=== PATIENT | female | born 1940 | race Caucasian/White ===

== ENCOUNTER → 2016-08-21 | Outpatient (CLI) | payer MEDICARE ==
[~2016-08-21] MED LIST: BUMEX 1MG TABLET1 MG PO; CARDIZEM120 MG PO; CATAPRES 0.1MG0.1 MG PO; CATAPRES-TTS 21 EACH TD; HYDRALAZINE HCL50 MG PO; LACTINEX PACKET1 PKT PO; LEVAQUIN500 MG PO; LEVAQUIN750 MG PO; LOSARTAN POTAS100 MG PO; METOPROLOL TART50 MG PO; PERCOCET 5/325 T1 EA PO; SYNTHROID 88 M88 MCG PO; VIBRAMYCIN 100100 MG PO; ZOFRAN ODT4 MG PO; ZOFRAN4 MG PO
== END ==
LOC: KOH-I 14:25
DX: M25.522 Pain in left elbow (principal)
CPT/HCPCS: 73060; 73080; 73090

== ENCOUNTER 2020-09-10 19:50 | Inpatient (IN) | payer MEDICARE ==
[~2020-09-10] VITALS: Ht 149.9 cm; Wt 55.3 kg
[~2020-09-10 19:50] MED LIST changes: +ALENDRONATE SOD70 MG PO; +ARTHRITIS PAIN650 M2 PO; -CARDIZEM120 MG PO; +FOLIC ACID 1 MG1 MG PO; +LOPRESSOR50 MG PO; +METHOTREXATE2.5 MG PO; -METOPROLOL TART50 MG PO; +PREDNISONE5 MG PO; +PRILOSEC OTC20 MG PO; +ROCEPHIN 1 GM AD1 GM IV; +ROXICODONE5 MG PO; -SYNTHROID 88 M88 MCG PO; +SYNTHROID75 MCG PO; +TRAMADOL HCL50 MG PO
[2020-09-11 03:28] LABS: HEMOGLOBIN 13.6 gm/dl (12.3-15.3); RED BLOOD COUNT 3.73 M/UL (4.00-5.10); WHITE BLOOD COUNT 13.4 K/UL (4.5-11.0)
[2020-09-11] MEDS ORDERED: ZYVOX600 MG PO (09:41)
[2020-09-11] MEDS ORDERED: ALDACTONE 25MG25 MG PO (09:43)
[2020-09-11] MEDS ORDERED: METHOTREXATE T2.5 MG PO (09:43)
[2020-09-11] MEDS ORDERED: POTASSIUM99 M1 PO (09:45)
[2020-09-11] MEDS ORDERED: VITAMIN B-121000 MC3 PO (09:46)
[2020-09-11] MEDS ORDERED: CENTRUM SILVER1 EAC1 PO (09:46)
[2020-09-11] MEDS ORDERED: CALCIUM CITRAT200 MG PO (09:47)
[2020-09-13 05:25] LABS: HEMOGLOBIN 11.9 gm/dl (12.3-15.3); RED BLOOD COUNT 3.39 M/UL (4.00-5.10)
[2020-09-13 05:26] LABS: WHITE BLOOD COUNT 9.5 K/UL (4.5-11.0)
[2020-09-14 13:50] LABS: HEMOGLOBIN 10.2 gm/dl (12.3-15.3); RED BLOOD COUNT 2.85 M/UL (4.00-5.10); WHITE BLOOD COUNT 8.1 K/UL (4.5-11.0)
[2020-09-15 05:20] LABS: HEMOGLOBIN 11.1 gm/dl (12.3-15.3); RED BLOOD COUNT 3.04 M/UL (4.00-5.10); WHITE BLOOD COUNT 6.5 K/UL (4.5-11.0)
[2020-09-15 05:53] LABS: BUN/CREATININE RATIO 3 (0-10)
[2020-09-16 03:54] LABS: HEMOGLOBIN 10.2 gm/dl (12.3-15.3); RED BLOOD COUNT 2.84 M/UL (4.00-5.10); WHITE BLOOD COUNT 6.9 K/UL (4.5-11.0)
[2020-09-16 04:10] LABS: BUN/CREATININE RATIO 4 (0-10)
[2020-09-17 04:01] LABS: HEMOGLOBIN 10.1 gm/dl (12.3-15.3); RED BLOOD COUNT 2.84 M/UL (4.00-5.10); WHITE BLOOD COUNT 6.6 K/UL (4.5-11.0)
[2020-09-17 04:37] LABS: BUN/CREATININE RATIO 4 (0-10)
[2020-09-17] MEDS ORDERED: AMOX TR-K CLV1 EAC4 PO (10:37)
--- NOTE | 2020-09-17 16:26 | NUR ---
CALLED [facility]. REPORT GIVEN TO [employer] CONSERVATION TEACHER RN FOR INTAKE
[2020-09-18] MEDS ORDERED: ZYRTEC10 M3 PO (22:33)
[2020-09-18] MEDS ORDERED: ASPIRIN CHEWABL81 MG PO (22:34)
[2020-09-18] MEDS ORDERED: BUMETANIDE1 MG PO (22:34)
[2020-09-18] MEDS ORDERED: CALCIUM CITRAT200 MG PO (22:35)
[2020-10-23] MEDS ORDERED: DULCOLAX5 MG PO (11:01)
[2020-10-23] MEDS ORDERED: POLYETHYLENE GL17 GM PO (11:01)
[2020-10-23] MEDS ORDERED: CHRONULAC20 GM/30 M PO (11:01)
[2020-10-23] MEDS ORDERED: ONDANSETRON HCL4 MG PO (11:01)
[2020-10-23] MEDS ORDERED: DOCUSATE SODIU100 MG PO (11:01)
== END 2020-09-17 18:25 | disposition home health service (06) | DRG 580 ==
LOC: ER1 19:50 → CDU 09-11 04:07 → MED SURG 4 09-11 04:07
PROVIDERS: Internal Medicine; Physician Assistant; ADMIT Internal Medicine
PROC: 0JBJ0ZZ Excision of Right Hand Subcutaneous Tissue and Fascia, Open Approach (ICD-10-PCS; principal; 2020-09-12)
DX: L02.512 Cutaneous abscess of left hand (principal); D84.821 Immunodeficiency due to drugs; E22.2 Syndrome of inappropriate secretion of antidiuretic hormone; L98.498 Non-pressure chronic ulcer of skin of other sites with other specified severity; I13.0 Hypertensive heart and chronic kidney disease with heart failure and stage 1 through stage 4 chronic kidney disease, or unspecified chronic kidney disease; M65.9 Synovitis and tenosynovitis, unspecified; L03.012 Cellulitis of left finger; Z20.822 Contact with and (suspected) exposure to COVID-19; N18.9 Chronic kidney disease, unspecified; E03.9 Hypothyroidism, unspecified; M06.9 Rheumatoid arthritis, unspecified; I27.20 Pulmonary hypertension, unspecified; D64.9 Anemia, unspecified; I50.9 Heart failure, unspecified; E86.0 Dehydration; G47.33 Obstructive sleep apnea (adult) (pediatric); J02.9 Acute pharyngitis, unspecified; T45.1X5A Adverse effect of antineoplastic and immunosuppressive drugs, initial encounter; Z88.1 Allergy status to other antibiotic agents; Z90.710 Acquired absence of both cervix and uterus; Z98.42 Cataract extraction status, left eye; Z98.41 Cataract extraction status, right eye; Z88.6 Allergy status to analgesic agent; Z88.2 Allergy status to sulfonamides; Z88.8 Allergy status to other drugs, medicaments and biological substances; Z82.61 Family history of arthritis
CPT/HCPCS: 36415; 73130; 80048; 80053; 80202; 81001; 83605; 83930; 84295; 85025; 85027; 85652; 86140; 87040; 87070; 87081; 87880; 96374; 99284; G0378; J1100; J2270; J2405; J2543; J2704; J3010; J3370; J7030; J7070; J7120; U0002

== ENCOUNTER 2020-09-18 12:20 | Inpatient (IN) | payer MEDICARE ==
[~2020-09-18] VITALS: Ht 149.9 cm; Wt 56.7 kg
[~2020-09-18 12:20] MED LIST changes: +ALDACTONE 25MG25 MG PO; +AMOX TR-K CLV1 EAC4 PO; +CALCIUM CITRAT200 MG PO; +CENTRUM SILVER1 EAC1 PO; +METHOTREXATE T2.5 MG PO; +POTASSIUM99 M1 PO; +VITAMIN B-121000 MC3 PO; +ZYVOX600 MG PO
[2020-09-18 16:32] LABS: HEMOGLOBIN 12.5 gm/dl (12.3-15.3); RED BLOOD COUNT 3.44 M/UL (4.00-5.10); WHITE BLOOD COUNT 12.9 K/UL (4.5-11.0)
[2020-09-18 16:33] LABS: BUN/CREATININE RATIO 5 (0-10)
[2020-09-18] MEDS ORDERED: ZYRTEC10 M3 PO (22:33)
[2020-09-18] MEDS ORDERED: ASPIRIN CHEWABL81 MG PO (22:34)
[2020-09-18] MEDS ORDERED: BUMETANIDE1 MG PO (22:34)
[2020-09-18] MEDS ORDERED: CALCIUM CITRAT200 MG PO (22:35)
[2020-09-19 03:22] LABS: WHITE BLOOD COUNT 9.8 K/UL (4.5-11.0)
[2020-09-19 03:23] LABS: HEMOGLOBIN 10.2 gm/dl (12.3-15.3); RED BLOOD COUNT 2.86 M/UL (4.00-5.10)
[2020-09-19 03:50] LABS: BUN/CREATININE RATIO 5 (0-10)
[2020-09-19] MEDS ORDERED: CARDIZEM PO (15:26)
--- NOTE | 2020-09-20 03:49 | NUR ---
09/19/201929 PATIENT'S DAUGHTER REQUESTED THAT I COME IN THE ROOM SO THAT SHE COULD SPEAK WITH ME. SHE STATED THAT WHILE CLEANING HER MOM UP EARLIER IN THE DAY BEFORE MY SHIFT STARTED, SHE NOTICED A SMALL PLACE ON HER BOTTOM. PATIENT STATED THAT SHE DID NOT KNOW THE ULCER WAS THERE AND NEITHER DID THE DAUGHTER UNTIL THEN. UPON ADMISSION, THE PATIENT STATED SHE HAD NO SKIN ISSUES OTHER THAN HER LEFT INDEX FINGER AT THE MOMENT AND REFUSED A FULL SKIN ASSESSMENT. PICTURES OF THE ULCER WERE TAKEN AND ARE ON THE CHART.
[2020-09-20 04:43] LABS: BUN/CREATININE RATIO 4 (0-10)
--- NOTE | 2020-09-20 18:00 | NUR ---
1423- BACK FROM OR AT THIS TIME. VITAL SIGNS STABLE. NO DISTRESS NOTED. NO COMPLAINTS. WILL MONITOR.
[2020-09-21 05:26] LABS: BUN/CREATININE RATIO 5 (0-10)
--- NOTE | 2020-09-21 14:33 | NUR ---
PATIENT TOLERATED DRESSING CHANGE BUT REFUSED TO ALLOW ME TO DO A TRUE WET-TO-DRY DRESSING ORDERED. SHE INSISTED ON KEEPING PETROLEUM GAUZE ON THE SITE AND THEN THE DRY GAUZE OVER IT. I WAS ALSO UNABLE TO TRULY COMPRESSION WRAP THE SITE BECAUSE THE PATIENT INSISTED I KEEP IT LOOSE BECAUSE IT WAS PAINFUL. PATIENT WAS PRE-MEDICATED WITH MORPHINE PRIOR TO THE PROCEDURE BUT STILL HAD A LOW TOLERANCE FOR ANY PRESSURE TO THE AFFECTED FINGER.
--- NOTE | 2020-09-22 17:40 | NUR ---
PATEINT REFUSED WET TO DRY DRESSING. DRESSING REMOVED WAS XEROFOAM, GAUZE AND FRIDA WRAP.
[2020-09-23] MEDS ORDERED: ZYVOX600 MG PO (12:14)
[2020-09-24] MEDS ORDERED: LEVOFLOXACIN750 MG PO (09:44)
[2020-09-24] MEDS ORDERED: CEFEPIME-D1 GM/50 ML IV (14:35)
--- NOTE | 2020-09-25 18:18 | NUR ---
patient request to remove her dressing on her left finger, patient and daughter stated that concern of the way her finger looks like and the patient is having pain at this time was the same when she left the hospital and came right back because of the pain and the way wound looks like. daughter request to notify md of the concern. contacted dr. james and he spoken to the patient and daughter and gave them advise of pain management, infectious desease, and daughter stated that she would like to see surgeon. contacted dr. casiano and will see patient tomorrow and I received order. patient and daughter informed of what dr. casiano said and satisfied when i informed them of npo after midnight and not leaving tonight.
--- NOTE | 2020-09-26 10:27 | NUR ---
09/26/20 1025 REPORT CALLED TO [facility]
[2020-09-26] MEDS ORDERED: HYDROCODON-ACE1 EAC4 PO ×2 (10:36→10:53)
[2020-09-26] MEDS ORDERED: PERCOCET 5/325 T1 EA PO (13:18)
[2020-10-23] MEDS ORDERED: DOCUSATE SODIU100 MG PO (11:01)
[2020-10-23] MEDS ORDERED: DULCOLAX5 MG PO (11:01)
[2020-10-23] MEDS ORDERED: CHRONULAC20 GM/30 M PO (11:01)
[2020-10-23] MEDS ORDERED: ONDANSETRON HCL4 MG PO (11:01)
[2020-10-23] MEDS ORDERED: POLYETHYLENE GL17 GM PO (11:01)
== END 2020-09-26 14:25 | disposition home or self-care (01) | DRG 857 ==
LOC: ER1 12:20 → M/S 17:13 → CDU 17:13 → M/S 22:11
PROVIDERS: Orthopaedic Surgery; Physician Assistant; Physician Assistant Medical; ADMIT Internal Medicine
PROC: 0JBK0ZZ Excision of Left Hand Subcutaneous Tissue and Fascia, Open Approach (ICD-10-PCS; principal; 2020-09-20 13:00)
DX: T81.49XA Infection following a procedure, other surgical site, initial encounter (principal); L02.512 Cutaneous abscess of left hand; I96 Gangrene, not elsewhere classified; L03.012 Cellulitis of left finger; R53.1 Weakness; I77.6 Arteritis, unspecified; Z20.822 Contact with and (suspected) exposure to COVID-19; I10 Essential (primary) hypertension; B96.5 Pseudomonas (aeruginosa) (mallei) (pseudomallei) as the cause of diseases classified elsewhere; E03.9 Hypothyroidism, unspecified; M06.9 Rheumatoid arthritis, unspecified; I27.20 Pulmonary hypertension, unspecified; I07.1 Rheumatic tricuspid insufficiency; G47.33 Obstructive sleep apnea (adult) (pediatric); Z88.1 Allergy status to other antibiotic agents; Z88.2 Allergy status to sulfonamides; Z88.8 Allergy status to other drugs, medicaments and biological substances; Z90.710 Acquired absence of both cervix and uterus; Z82.61 Family history of arthritis; Z79.899 Other long term (current) drug therapy; Z79.82 Long term (current) use of aspirin
CPT/HCPCS: 36415; 73140; 80048; 80053; 80202; 83605; 83735; 85025; 85027; 85652; 86140; 87040; 87070; 87077; 87186; 87205; 96374; 96375; 97116-GP-CQ; 97161; 97530-GP-CQ; 99284; A6212; C1751; J2250; J2270; J2405; J2543; J2550; J2704; J2795; J3010; J3370; J7050; J7070; J7120; U0002

== ENCOUNTER 2020-10-15 11:11 | Inpatient (IN) | payer MEDICARE ==
[~2020-10-15] VITALS: Ht 162.6 cm; Wt 61.2 kg
[~2020-10-15 11:11] MED LIST changes: +ASPIRIN CHEWABL81 MG PO; +BUMETANIDE1 MG PO; +CARDIZEM PO; +CEFEPIME-D1 GM/50 ML IV; +HYDROCODON-ACE1 EAC4 PO; +LEVOFLOXACIN750 MG PO; +ZYRTEC10 M3 PO
[2020-10-15] MEDS ORDERED: ZYVOX600 MG PO (12:22)
[2020-10-16 10:45] LABS: HEMOGLOBIN 10.7 gm/dl (12.3-15.3); RED BLOOD COUNT 3.08 M/UL (4.00-5.10); WHITE BLOOD COUNT 6.6 K/UL (4.5-11.0)
--- NOTE | 2020-10-16 14:47 | NUR ---
PATIENT WOUND CARE PERFORMED PER MD ORDERS. TOLERATED WELL.
[2020-10-18 09:50] LABS: HEMOGLOBIN 12.8 gm/dl (12.3-15.3); RED BLOOD COUNT 3.62 M/UL (4.00-5.10); WHITE BLOOD COUNT 12.3 K/UL (4.5-11.0)
[2020-10-19 16:20] LABS: HEMOGLOBIN 11.1 gm/dl (12.3-15.3)
[2020-10-19 16:21] LABS: RED BLOOD COUNT 3.15 M/UL (4.00-5.10); WHITE BLOOD COUNT 8.9 K/UL (4.5-11.0)
--- NOTE | 2020-10-19 17:05 | NUR ---
SOAP SUDS ENEMA ADMINISTERED, NO RESULTS AT THIS TIME.
--- NOTE | 2020-10-19 17:14 | NUR ---
WOUND CARE PERFORMED PER MD ORDER. PATIENT TOLERATED WELL.
[2020-10-20 03:37] LABS: HEMOGLOBIN 11.7 gm/dl (12.3-15.3); RED BLOOD COUNT 3.36 M/UL (4.00-5.10)
[2020-10-20 03:41] LABS: WHITE BLOOD COUNT 12.7 K/UL (4.5-11.0)
[2020-10-20 04:12] LABS: BUN/CREATININE RATIO 17 (0-10)
--- NOTE | 2020-10-20 10:31 | NUR ---
[id number] padilla
[2020-10-21 08:20] LABS: HEMOGLOBIN 11.7 gm/dl (12.3-15.3); RED BLOOD COUNT 3.41 M/UL (4.00-5.10); WHITE BLOOD COUNT 13.8 K/UL (4.5-11.0)
[2020-10-21 09:01] LABS: BUN/CREATININE RATIO 20 (0-10)
[2020-10-22 03:21] LABS: HEMOGLOBIN 11.1 gm/dl (12.3-15.3); RED BLOOD COUNT 3.22 M/UL (4.00-5.10); WHITE BLOOD COUNT 9.8 K/UL (4.5-11.0)
[2020-10-22 04:00] LABS: BUN/CREATININE RATIO 19 (0-10)
[2020-10-23 02:36] LABS: HEMOGLOBIN 10.1 gm/dl (12.3-15.3); WHITE BLOOD COUNT 8.3 K/UL (4.5-11.0)
[2020-10-23 02:40] LABS: RED BLOOD COUNT 2.86 M/UL (4.00-5.10)
[2020-10-23 03:01] LABS: BUN/CREATININE RATIO 12 (0-10)
[2020-10-23] MEDS ORDERED: DULCOLAX5 MG PO (11:01)
[2020-10-23] MEDS ORDERED: POLYETHYLENE GL17 GM PO (11:01)
[2020-10-23] MEDS ORDERED: DOCUSATE SODIU100 MG PO (11:01)
[2020-10-23] MEDS ORDERED: ONDANSETRON HCL4 MG PO (11:01)
[2020-10-23] MEDS ORDERED: CHRONULAC20 GM/30 M PO (11:01)
[2020-10-24 05:59] LABS: HEMOGLOBIN 10.2 gm/dl (12.3-15.3); RED BLOOD COUNT 2.92 M/UL (4.00-5.10); WHITE BLOOD COUNT 8.5 K/UL (4.5-11.0)
[2020-10-24 06:17] LABS: BUN/CREATININE RATIO 9 (0-10)
[2020-10-25 03:15] LABS: HEMOGLOBIN 9.2 gm/dl (12.3-15.3); RED BLOOD COUNT 2.63 M/UL (4.00-5.10); WHITE BLOOD COUNT 7.6 K/UL (4.5-11.0)
[2020-10-25 03:35] LABS: BUN/CREATININE RATIO 9 (0-10)
== END 2020-10-25 15:03 | DRG 988 ==
LOC: OR 11:11 → M/S 11:11 → OR 15:30 → EDSTATUS 16:30 → OR 16:30 → M/S 16:46 → CDU 10-19 10:31 → OR 10-19 10:32 → CDU 10-19 10:32 → M/S 10-19 10:32 → OR 10-19 10:57 → M/S 10-19 11:11
PROVIDERS: Orthopaedic Surgery; ADMIT Internal Medicine
PROC: 0JBK0ZZ Excision of Left Hand Subcutaneous Tissue and Fascia, Open Approach (ICD-10-PCS; principal; 2020-10-15 15:35)
DX: K56.7 Ileus, unspecified (principal); L02.512 Cutaneous abscess of left hand; R65.10 Systemic inflammatory response syndrome (SIRS) of non-infectious origin without acute organ dysfunction; K56.600 Partial intestinal obstruction, unspecified as to cause; Z20.822 Contact with and (suspected) exposure to COVID-19; M81.0 Age-related osteoporosis without current pathological fracture; M06.9 Rheumatoid arthritis, unspecified; I10 Essential (primary) hypertension; I70.1 Atherosclerosis of renal artery; I27.20 Pulmonary hypertension, unspecified; E03.9 Hypothyroidism, unspecified; G47.33 Obstructive sleep apnea (adult) (pediatric); K62.89 Other specified diseases of anus and rectum; K59.03 Drug induced constipation; T40.2X5A Adverse effect of other opioids, initial encounter; I07.1 Rheumatic tricuspid insufficiency; K44.9 Diaphragmatic hernia without obstruction or gangrene; Z82.49 Family history of ischemic heart disease and other diseases of the circulatory system; K57.90 Diverticulosis of intestine, part unspecified, without perforation or abscess without bleeding; Z88.1 Allergy status to other antibiotic agents; Z88.2 Allergy status to sulfonamides; Z88.5 Allergy status to narcotic agent; Z88.8 Allergy status to other drugs, medicaments and biological substances; Z90.710 Acquired absence of both cervix and uterus; Z98.890 Other specified postprocedural states; Z91.041 Radiographic dye allergy status; Z98.49 Cataract extraction status, unspecified eye; Z79.899 Other long term (current) drug therapy; Z86.14 Personal history of Methicillin resistant Staphylococcus aureus infection
CPT/HCPCS: 36415; 71045; 74018; 80048; 80053; 80202; 83735; 84100; 84132; 85025; 85027; 86140; 87070; 87205; 93005; 97110; 97116-GP-CQ; 97161; 97166; G0378; J0692; J1650; J1885; J2001; J2212; J2405; J2550; J2704; J2765; J3010; J3370; J7070; J7120; U0002

== ENCOUNTER → 2021-04-17 | Outpatient (CLI) | payer MEDICARE ==
[~2021-04-17] MED LIST changes: +CHRONULAC20 GM/30 M PO; +DOCUSATE SODIU100 MG PO; +DULCOLAX5 MG PO; +ONDANSETRON HCL4 MG PO; +POLYETHYLENE GL17 GM PO
== END ==
LOC: EXRD 15:39
DX: M06.041 Rheumatoid arthritis without rheumatoid factor, right hand (principal); M06.042 Rheumatoid arthritis without rheumatoid factor, left hand
CPT/HCPCS: 73130

== ENCOUNTER 2021-08-08 17:09 | Emergency (ER) | payer MEDICARE ==
[2021-08-08 18:39] LABS: HEMOGLOBIN 12.4 gm/dl (12.3-15.3); RED BLOOD COUNT 3.65 M/UL (4.00-5.10); WHITE BLOOD COUNT 10.4 K/UL (4.5-11.0)
[2021-08-08 19:22] LABS: BUN/CREATININE RATIO 13 (0-10)
== END 2021-08-08 21:15 | disposition home or self-care (01) ==
LOC: ER1 17:09
PROVIDERS: Family Medicine
DX: R42 Dizziness and giddiness (principal); S61.411A Laceration without foreign body of right hand, initial encounter; S00.83XA Contusion of other part of head, initial encounter; I12.9 Hypertensive chronic kidney disease with stage 1 through stage 4 chronic kidney disease, or unspecified chronic kidney disease; N18.9 Chronic kidney disease, unspecified; Z79.82 Long term (current) use of aspirin; Z88.2 Allergy status to sulfonamides; Z88.1 Allergy status to other antibiotic agents; W18.2XXA Fall in (into) shower or empty bathtub, initial encounter; Z88.8 Allergy status to other drugs, medicaments and biological substances; Y92.002 Bathroom of unspecified non-institutional (private) residence as the place of occurrence of the external cause
CPT/HCPCS: 70450; 73130; 80048; 82550; 82553; 84484; 85025; 90471; 90715; 93005; 99284

== ENCOUNTER 2021-12-08 18:42 | Inpatient (IN) | payer MEDICARE ==
[~2021-12-08] VITALS: Ht 149.9 cm; Wt 54.4 kg
[~2021-12-08 18:42] MED LIST changes: -ASPIRIN CHEWABL81 MG PO; +ASPIRIN EC81 MG PO; +LOPRESSOR 25 MG25 MG PO; -LOPRESSOR50 MG PO
[2021-12-08 20:52] LABS: HEMOGLOBIN 11.7 gm/dl (12.3-15.3); RED BLOOD COUNT 3.66 M/UL (4.00-5.10); WHITE BLOOD COUNT 10.9 K/UL (4.5-11.0)
[2021-12-09 04:43] LABS: HEMOGLOBIN 11.5 gm/dl (12.3-15.3); RED BLOOD COUNT 3.57 M/UL (4.00-5.10); WHITE BLOOD COUNT 9.4 K/UL (4.5-11.0)
[2021-12-09 04:58] LABS: BUN/CREATININE RATIO 14 (0-10)
[2021-12-09] MEDS ORDERED: METOPROLOL TART50 MG PO (10:41)
[2021-12-09] MEDS ORDERED: HYDROXYCHLOROQ200 MG PO (10:47)
[2021-12-10 06:35] LABS: HEMOGLOBIN 11.4 gm/dl (12.3-15.3); RED BLOOD COUNT 3.56 M/UL (4.00-5.10); WHITE BLOOD COUNT 7.4 K/UL (4.5-11.0)
[2021-12-11 07:19] LABS: HEMOGLOBIN 12.2 gm/dl (12.3-15.3); RED BLOOD COUNT 3.87 M/UL (4.00-5.10); WHITE BLOOD COUNT 7.7 K/UL (4.5-11.0)
[2021-12-11 07:46] LABS: BUN/CREATININE RATIO 11 (0-10)
[2021-12-12 07:06] LABS: RED BLOOD COUNT 3.81 M/UL (4.00-5.10); WHITE BLOOD COUNT 7.7 K/UL (4.5-11.0)
[2021-12-12 07:19] LABS: BUN/CREATININE RATIO 12 (0-10)
[2021-12-13 06:57] LABS: HEMOGLOBIN 12.6 gm/dl (12.3-15.3); RED BLOOD COUNT 3.95 M/UL (4.00-5.10)
[2021-12-13 07:09] LABS: WHITE BLOOD COUNT 5.5 K/UL (4.5-11.0)
[2021-12-13 07:21] LABS: BUN/CREATININE RATIO 15 (0-10)
[2021-12-14 07:02] LABS: HEMOGLOBIN 13.3 gm/dl (12.3-15.3); RED BLOOD COUNT 4.17 M/UL (4.00-5.10)
[2021-12-14 07:04] LABS: WHITE BLOOD COUNT 7.3 K/UL (4.5-11.0)
[2021-12-15 06:38] LABS: HEMOGLOBIN 12.6 gm/dl (12.3-15.3); WHITE BLOOD COUNT 7.3 K/UL (4.5-11.0)
[2021-12-16 05:02] LABS: HEMOGLOBIN 12.3 gm/dl (12.3-15.3); RED BLOOD COUNT 3.91 M/UL (4.00-5.10); WHITE BLOOD COUNT 6.7 K/UL (4.5-11.0)
[2021-12-17 03:51] LABS: HEMOGLOBIN 11.7 gm/dl (12.3-15.3); RED BLOOD COUNT 3.68 M/UL (4.00-5.10); WHITE BLOOD COUNT 7.8 K/UL (4.5-11.0)
--- NOTE | 2021-12-17 13:32 | NUR ---
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 RN GAVE MARIAH CALL BACK NUMBER AND INSTRUCTION TO CALL BACK TO PROCEED WITH DISCHARGE.
--- NOTE | 2021-12-17 14:32 | NUR ---
MARGUERITE VERIFIED WITH WANDA AT [facility] THAT ALL PAPERWORK HAD BEEN RECEIVED VIA FAX.
--- NOTE | 2021-12-17 14:45 | NUR ---
REPORT CALLED TO [facility].
--- NOTE | 2021-12-17 15:01 | NUR ---
REPORT CALLED TO [facility]
== END 2021-12-17 15:48 | DRG 312 ==
LOC: ER1 18:42 → CDU 12-09 03:16 → M/S 12-09 03:16
PROVIDERS: Emergency Medicine; Internal Medicine; ADMIT Internal Medicine
PROC: B24BZZZ Ultrasonography of Heart with Aorta (ICD-10-PCS; principal; 2021-12-10)
DX: R55 Syncope and collapse (principal); S22.43XA Multiple fractures of ribs, bilateral, initial encounter for closed fracture; J98.11 Atelectasis; R29.6 Repeated falls; Z20.822 Contact with and (suspected) exposure to COVID-19; M06.9 Rheumatoid arthritis, unspecified; S50.812A Abrasion of left forearm, initial encounter; W18.30XA Fall on same level, unspecified, initial encounter; E03.9 Hypothyroidism, unspecified; I27.20 Pulmonary hypertension, unspecified; M25.551 Pain in right hip; I16.0 Hypertensive urgency; G47.33 Obstructive sleep apnea (adult) (pediatric); K59.00 Constipation, unspecified; I11.0 Hypertensive heart disease with heart failure; I50.9 Heart failure, unspecified; I08.1 Rheumatic disorders of both mitral and tricuspid valves; I77.3 Arterial fibromuscular dysplasia; Z79.01 Long term (current) use of anticoagulants; Z79.82 Long term (current) use of aspirin; Z90.710 Acquired absence of both cervix and uterus; Z98.42 Cataract extraction status, left eye; Z98.41 Cataract extraction status, right eye; Z90.49 Acquired absence of other specified parts of digestive tract; Z88.1 Allergy status to other antibiotic agents; Z88.2 Allergy status to sulfonamides; Z88.8 Allergy status to other drugs, medicaments and biological substances; Z82.61 Family history of arthritis
CPT/HCPCS: ECHO; 36415; 70450; 70551; 71045; 71111; 71250; 72125; 72192; 73090; 73502; 80048; 80053; 82550; 82553; 83540; 83550; 83735; 83880; 84100; 84484; 85025; 85027; 93306; 93880; 96372; 96374; 97110; 97110-GP-CQ; 97116; 97116-GP-CQ; 97161; 97166; 97530-GP-CQ; 99285; G0378; J0360; J1650; J2270; J2405; U0002